=== PATIENT | female | born 1990 | race Hispanic/Latino ===

== ENCOUNTER 2021-05-12 17:22 | Emergency (ER) | payer OTHER ==
[~2021-05-12] VITALS: Ht 165.1 cm; Wt 83.9 kg
[2021-05-12 17:26] VITALS: BP 112/67
[2021-05-12 20:31] LABS: APPEARANCE,URINE Clear (CLEAR); BILIRUBIN,URINE Negative (NEGATIVE); COLOR,URINE Yellow (YELLOW); GLUCOSE, URINE (UA) Negative (NEGATIVE); KETONES,URINE >=80 mg/dL (NEGATIVE); LEUKOCYTE ESTERASE ,URINE Negative (NEGATIVE); NITRATE,URINE Negative (NEGATIVE); OCCULT BLOOD,URINE Trace (NEGATIVE); PROTEIN,URINE Trace mg/dL (NEGATIVE)
[2021-05-12 20:33] LABS: HCG,QUAL RESULT NEGATIVE (NEGATIVE)
[2021-05-12 20:40] LABS: BACTERIA,URINE Few /HPF (None Seen); MUCUS,URINE Few LPF (None Seen); SQUAMOUS EPITHELIAL CELL,UR Moderate /HPF (0-2); WBC,URINE 0-1 /HPF (0-1)
[2021-05-12 20:43] LABS: BASOPHILS % (AUTO) 0.4 % (0.0-5.0); EOSINOPHILS % (AUTO) 1.6 % (0.0-8.0); HEMATOCRIT 43.2 % (36-48); LYMPHOCYTES % (AUTO) 28.3 % (21.0-51.0); MEAN CORPUSCULAR HEMOGLOBIN 27.7 pg (27.0-33.0); MEAN CORPUSCULAR HGB CONC 31.9 g/dL (32.0-36.0); MEAN CORPUSCULAR VOLUME 86.6 fL (79-99); NEUTROPHILS % (AUTO) 64.5 % (40.0-77.0); PLATELET COUNT (AUTO) 332 K/uL (130-400); RED BLOOD CELL COUNT(AUTO) 4.99 MIL/uL (4.00-5.50); RED CELL DISTRIBUTION WIDTH 14.1 % (11.0-15.5); WHITE BLOOD COUNT (AUTO) 5.1 K/uL (4.8-10.8)
[2021-05-12 21:02] LABS: CREATININE 0.8 mg/dL (0.5-1.5); POTASSIUM 3.7 mmol/L (3.5-5.1)
[2021-05-12 21:10] LABS: ALBUMIN 3.7 g/dL (3.5-5.0); BILIRUBIN,TOTAL 0.3 mg/dL (0.2-1.0); CRP QUANTITATIVE 41.8 mg/L (0.00-9.0); TOTAL PROTEIN, SERUM 8.3 g/dL (6.0-8.3)
[2021-05-12] MEDS: 0.9%NACL 1000ML 1,000 ML IV ONE (21:18)
[2021-05-12] MEDS: ACETAMINOPHEN 500 MG TABLET PO ONE (21:18)
[2021-05-12 21:33] VITALS: BP 115/65
[2021-05-12] MEDS: CLINDAMYCIN IVPB 600MG/50ML 50 ML IV SCH (21:33)
[2021-05-12] MEDS ORDERED: ACET-2247 PO (21:57)
[2021-05-12] MEDS ORDERED: CLIN300C10 PO (21:57)
[2021-05-12] MEDS ORDERED: MUPI22O TP (21:57)
== END 2021-05-12 22:24 | disposition home or self-care (01) ==
LOC: EDH 17:22
DX: U07.1 COVID-19 (principal); N61.1 Abscess of the breast and nipple; Z79.899 Other long term (current) drug therapy
CPT/HCPCS: 36415; 76641; 80053; 81001; 81025; 83605; 85025; 86140; 87070; 87076; 87077; 87186; 87426; 87804 ×2; 87880; 96365; 99284; J3490; J7030